=== PATIENT | female | born 1990 | race Caucasian/White ===

== ENCOUNTER 2019-06-18 15:09 | Outpatient (CLI) | payer MEDICAID ==
[~2019-06-18] VITALS: Ht 165.1 cm; Wt 90.5 kg
[~2019-06-18 15:09] MED LIST: BCP TD; MOTRIN 600600 MG/TAB PO; PERCOCET 325 MG1 TA2 PO; PRENATAL1 TA2 PO
[2019-06-18 15:11] VITALS: BP 124/77; PULSE 88; TEMP 97.7
--- NOTE | 2019-06-18 15:15 | NUR ---
G2L1 at 41.3 weeks gestation to LDR4 with c/o leaking of fluid and decreased movement. Patient changed into gown and wedged to left side in bed. EFMs explained and applied. FHR 130 bpm and reactive. Irregular CTX per toco, patient describes them as "mild", VSS. Amniotrace to vagina remains yellow, SVE 2/70/-2, no fluid noted with exam. Plan of care reviewed with patient and spouse. Patient states that she feels reassured after hearing the FHR and has felt movement since being on the monitor.
[2019-06-19] MEDS ORDERED: MOTRIN 800800 MG/TAB PO (08:24)
[2019-06-19] MEDS ORDERED: PERCOCET 325 MG1 TA2 PO (08:24)
== END 2019-06-18 15:50 | disposition home or self-care (01) ==
LOC: LDRO 15:09
DX: O36.8130 Decreased fetal movements, third trimester, not applicable or unspecified (principal); O42.92 Full-term premature rupture of membranes, unspecified as to length of time between rupture and onset of labor; Z3A.41 41 weeks gestation of pregnancy

== ENCOUNTER 2019-06-19 06:40 | Inpatient (IN) | payer MEDICAID ==
[2019-06-19] VITALS (37 sets, daily range): BP systolic 94–140; BP diastolic 48–83; PULSE 65–99; TEMP 97.2–98.5
[~2019-06-19] VITALS: Ht 165.1 cm; Wt 90.0 kg
--- NOTE | 2019-06-19 06:50 | NUR ---
0650- Patient arrives ambulatory with FOB for scheduled induction of labor. Patient reports irregular contractions, denies ROM or vaginal bleeding and reports normal movement. Patient very anxious and tearful. Discussing plan of care and patient worries. Patient had PPH with last delivery and is very nervous about that. Reviewed precautions and plan of care. EFM explained and placed. VSS. 0700- IV started in LFA. Labs obtained, LR infusing per protocol. Assessment completed. Consents explained and signed. 0720- Dr. Mcdermott at bedside. Discussing plan of care for AROM and Pitocin induction. Patient denies questions at this time. 0726- SVE by provider 2-/-2. AROM by Dr. Mcdermott at this time for moderate amount of fluid. Pericare given. Orders to begin Pitocin induction. 0730- Ancef infusing per order. 0736- Pitocin started at 2 mU per protocol and order. 0737- Hypertonic uterine contraction noted lasting approximately 5.5 minutes. Patient repositioned LL at 0739, LR bolus infusing. Pitocin discontinued at 0740. Uterine tone relaxed at 0742. Pitocin remains off. Dr. Mcdermott on unit, will notify of uterine pattern when out of surgery. Patient updated on plan of care. Normal contraction pattern noted following interventions.
[2019-06-19 08:13] LABS: BASO % 0.3 % (0.0-2.0); EOS # 0.2 (0.0-0.7); EOS % 1.4 % (0-4.0); GRAN # 8.2 (1.4-6.5); GRAN % 75.3 % (42.2-75.2); HEMATOCRIT 39.4 % (37.0-47.0); HEMOGLOBIN 13.6 g/dl (12.5-16.0); LYMPH # 1.7 (1.2-3.4); LYMPH % 15.8 % (20.0-51.0); MEAN CELL VOLUME 94 fl (80.0-100.0); MEAN CORPUSCULAR HEMOGLOBIN 33 pg (27.0-31.0); MEAN CORPUSCULAR HGB CONC 35 g/dl (33.0-37.0); MEAN PLATELET VOLUME 11.6 fl (7.4-10.4); MONO # 0.7 (0.1-0.6); MONO % 6.7 % (1.7-9.3); PLATELET COUNT 170 K/mm3 (130-400); RED BLOOD COUNT 4.18 M/mm3 (4.10-5.30); REDCELL DISTRIBUTION WIDTH-CV 13.2 % (11.5-14.5)
[2019-06-19] MEDS ORDERED: PERCOCET 325 MG1 TA2 PO (08:24)
[2019-06-19] MEDS ORDERED: MOTRIN 800800 MG/TAB PO (08:24)
--- NOTE | 2019-06-19 10:34 | NUR ---
Dr. Mcdermott updated on patient assessment and request for Tylenol for headache. Orders to give Tylenol and restart Pitocin. Patient updated on plan of care.SVE /-2. 1043- Pitocin restarted at 2 mU per order.
--- NOTE | 2019-06-19 11:00 | NUR ---
Dr. Mcdermott at bedside. Discussing plan of care to continue induction. Patient desires epidural when anesthesia is available.
--- NOTE | 2019-06-19 11:30 | NUR ---
1135- Patient assisted to sit on edge of bed. Oli Owens CRNA at bedside for epidural placement. 1142- Single shot via epidural by Oli Owens CRNA. Patient tolerates well, no adverse reactions noted. See anesthesia record. 1148- Patient repositioned WL following epidural placement. Updated on plan of care, safety reviewed.
--- NOTE | 2019-06-19 13:00 | NUR ---
Patient repositioned LL with peanut ball in place. Comfortable with epidural.
--- NOTE | 2019-06-19 16:00 | NUR ---
1600- Dr. Mcdermott at bedside. SVE 10. Patient reports urge to push. SVE 10/1. Patient prepped for delivery. Lamar catheter removed prior to pushing. Pericare given. Patient assisted to footplates. 1610- Patient begins pushing with contractions with provider at bedside. Moves vertex well. 1614- of viable female infant attended by Dr. Mcdermott. Infant to mother's abdomen, care of infant to Oli Peng RN. Apgars 9. 1617- Spont. delivery of placenta. Pitocin bolus started at 333 ml/hr/protocol. Fundal massage by RN. 1618- Increased free flow noted. Orders for Methergine. 1621- Methergine IM given. Vaginal bleeding improves. First degree perineal laceration repaired by clare. Patient tolerates well. Pericare given and ice pack applied. Safety reviewed.
[2019-06-20 01:30] VITALS: BP 116/76; PULSE 76; TEMP 98
[2019-06-20 05:10] VITALS: BP 107/55; PULSE 77; TEMP 98.2
[2019-06-20 08:20] VITALS: BP 111/68; PULSE 80; TEMP 98.3
[2019-06-20 12:35] VITALS: BP 105/59; PULSE 87; TEMP 98.4
[2019-06-20 16:00] VITALS: BP 109/72; PULSE 78; TEMP 98.5
[2019-06-20 19:25] VITALS: BP 119/67; PULSE 80
[2019-06-21 07:35] VITALS: BP 112/65; PULSE 76; TEMP 98.2
[2019-06-21 15:51] VITALS: BP 113/74; PULSE 79; TEMP 98.5
--- NOTE | 2019-06-21 16:50 | NUR ---
Patient given discharge instructions. Denies questions. Leaves ambulatory.
== END 2019-06-21 16:50 | disposition home or self-care (01) | DRG 768 ==
LOC: LDR → OB 19:35
PROVIDERS: ADMIT Obstetrics & Gynecology
PROC: 3E033VJ Introduction of Other Hormone into Peripheral Vein, Percutaneous Approach (ICD-10-PCS; principal; 2019-06-19)
PROC: 0HX9XZZ Transfer Perineum Skin, External Approach (ICD-10-PCS; 2019-06-19)
PROC: 10E0XZZ Delivery of Products of Conception, External Approach (ICD-10-PCS; 2019-06-19)
PROC: 10907ZC Drainage of Amniotic Fluid, Therapeutic from Products of Conception, Via Natural or Artificial Opening (ICD-10-PCS; 2019-06-19)
DX: O48.0 Post-term pregnancy (principal); Z37.0 Single live birth; O72.1 Other immediate postpartum hemorrhage; Z3A.41 41 weeks gestation of pregnancy; O70.0 First degree perineal laceration during delivery; O99.824 Streptococcus B carrier state complicating childbirth; Z23 Encounter for immunization
CPT/HCPCS: J0690; J2210; J2590; J2795; J7120

== ENCOUNTER → 2021-05-10 | Outpatient (CLI) | payer BC ==
[~2021-05-10] MED LIST changes: +MOTRIN 800800 MG/TAB PO
== END ==
LOC: MC.RAD 13:15
DX: Z12.31 Encounter for screening mammogram for malignant neoplasm of breast (principal)